=== PATIENT | female | born 1965 | race Two or more races ===

== ENCOUNTER 2022-02-02 10:45 | Inpatient (IN) | payer OTHER ==
[~2022-02-02] VITALS: Ht 152.4 cm; Wt 64.9 kg
[2022-02-02] MEDS ORDERED: ENALAPRIL MALEA10 MG (12:25)
[2022-03-10] MEDS ORDERED: ULTRACET PO (09:41)
== END 2022-03-10 13:23 | disposition home or self-care (01) | DRG 330 ==
LOC: SURG 02-07 10:45 → O/R 03-08 05:15 → SURG 03-08 09:00
PROVIDERS: ADMIT Colon & Rectal Surgery; ATTEND Colon & Rectal Surgery
PROC: 0DBP4ZZ Excision of Rectum, Percutaneous Endoscopic Approach (ICD-10-PCS; 2022-03-08)
PROC: 0DJD8ZZ Inspection of Lower Intestinal Tract, Via Natural or Artificial Opening Endoscopic (ICD-10-PCS; 2022-03-08)
PROC: 0DTN4ZZ Resection of Sigmoid Colon, Percutaneous Endoscopic Approach (ICD-10-PCS; principal; 2022-03-08 09:00)
DX: K57.32 Diverticulitis of large intestine without perforation or abscess without bleeding (principal); K92.1 Melena; I11.9 Hypertensive heart disease without heart failure; Z20.822 Contact with and (suspected) exposure to COVID-19

== ENCOUNTER 2022-03-02 09:09 | Outpatient (CLI) | payer OTHER ==
[~2022-03-02 09:09] MED LIST: ENALAPRIL MALEA10 MG
== END 2022-03-02 15:33 | disposition home or self-care (01) ==
LOC: LAB 09:09
PROVIDERS: ATTEND Colon & Rectal Surgery
DX: Z03.818 Encounter for observation for suspected exposure to other biological agents ruled out (principal); Z20.822 Contact with and (suspected) exposure to COVID-19